=== PATIENT | male | born 1950 | race Caucasian/White ===

== ENCOUNTER 2021-12-27 16:09 | Emergency (ER) | payer MEDICARE ==
[2021-12-28] MEDS ORDERED: SODIUM CHLORIDE 0.9% 1000 ML 1,000 ML IV ONE (02:12)
--- NOTE | 2021-12-28 02:49 | Emergency Department Report ---
ED Dizziness HPI - General Chief Complaint: Dizziness Stated Complaint: DIZZINESS Time Seen by Provider: 12/28/21 02:06 Source: patient Mode of arrival: Ambulatory Limitations: No Limitations - History of Present Illness Initial Comments: Patient is a 71-year-old male presenting with complaint of dizziness and lightheadedness for the past 2 days. States when he walks he feels as if he could possibly pass out. He denies any chest pain, palpitations or headaches. - Related Data Previous Rx's Medication Instructions Recorded Last Taken Type QUEtiapine [SEROquel] 400 mg PO HS #60 tablet 04/30/19 Unknown Rx Sertraline [Zoloft] 50 mg PO QDAY #30 tablet 04/30/19 Unknown Rx Thiamine [Vitamin B-1] 100 mg PO QDAY #30 tablet 04/30/19 Unknown Rx chlordiazePOXIDE [Librium] 5 mg PO HS #7 capsule 04/30/19 Unknown Rx Meclizine [Antivert] 12.5 mg PO BID PRN #10 12/28/21 Unknown Rx Allergies Allergy/AdvReac Type Severity Reaction Status Date / Time haloperidol [From Haldol] Allergy Unknown Unverified 04/22/19 09:05 ED Review of Systems ROS: Stated complaint: DIZZINESS Other details as noted in HPI Constitutional: denies: chills, fever Respiratory: denies: cough, shortness of breath, wheezing Cardiovascular: denies: chest pain, palpitations Gastrointestinal: denies: abdominal pain, nausea, diarrhea Genitourinary: denies: urgency, dysuria Neurological: vertigo Psychiatric: denies: anxiety, depression ED Past Medical Hx - Past Medical History Hx Congestive Heart Failure: No Hx Diabetes: No Hx Renal Disease: No Hx Arthritis: No Hx Seizures: Yes Hx Asthma: No Hx COPD: Yes - Medications Home Medications: Home Medications Medication Instructions Recorded Confirmed Last Taken Type QUEtiapine [SEROquel] 400 mg PO HS #60 tablet 04/30/19 Unknown Rx Sertraline [Zoloft] 50 mg PO QDAY #30 tablet 04/30/19 Unknown Rx Thiamine [Vitamin B-1] 100 mg PO QDAY #30 tablet 04/30/19 Unknown Rx chlordiazePOXIDE [Librium] 5 mg PO HS #7 capsule 04/30/19 Unknown Rx Meclizine [Antivert] 12.5 mg PO BID PRN #10 12/28/21 Unknown Rx ED Physical Exam - General Limitations: No Limitations General appearance: alert, in no apparent distress - Head Head exam: Present: atraumatic, normocephalic - Respiratory Respiratory exam: Present: normal lung sounds bilaterally. Absent: respiratory distress - Cardiovascular Cardiovascular Exam: Present: regular rate, normal rhythm. Absent: systolic murmur, diastolic murmur, rubs, gallop - GI/Abdominal GI/Abdominal exam: Present: soft, normal bowel sounds. Absent: tenderness - Neurological Exam Neurological exam: Present: alert, oriented X3, CN II-XII intact - Psychiatric Psychiatric exam: Present: normal affect, normal mood - Skin Skin exam: Present: warm, dry, intact, normal color ED Course Vital Signs 12/27/21 18:14 Temperature 98.7 F Pulse Rate 74 Respiratory 18 Rate Blood Pressure 118/64 [Right] O2 Sat by Pulse 99 Oximetry ED Medical Decision Making - Lab Data Result diagrams: 12/28/21 02:22 12/28/21 02:22 - EKG Data EKG shows normal: sinus rhythm, axis, intervals, QRS complexes, ST-T waves - Medical Decision Making CT head shows no acute intracranial abnormality. Hypoattenuation noted in association with remote infarct. Labs are grossly unremarkable. Patient given 1 L normal saline bolus. EKG is normal. Likely benign positional vertigo. Will discharge home on meclizine. Follow-up with PCP as needed. Critical care attestation.: If time is entered above; I have spent that time in minutes in the direct care o f this critically ill patient, excluding procedure time. ED Disposition Clinical Impression: Nonspecific dizziness Disposition: 01 HOME / SELF CARE / HOMELESS Is pt being admited?: No Condition: Stable Instructions: Vertigo, [id number] Referrals: ELAINE DUDLEY MD [Primary Care Provider] - 3-5 Days Time of Disposition: 04:12
[2021-12-28 02:58] LABS: Basophils # (Auto) 0.1 K/mm3 (0.0-0.1); Basophils % (Auto) 1.2 % (0.0-1.8); Eosinophils # (Auto) 0.2 K/mm3 (0.0-0.4); Eosinophils % (Auto) 3.8 % (0.0-4.3); Hematocrit 41.6 % (35.5-45.6); Hemoglobin 14.1 gm/dl (11.8-15.2); Lymphocytes # (Auto) 1.6 K/mm3 (1.2-5.4); Lymphocytes % (Auto) 27.3 % (13.4-35.0); Mean Corpuscular HGB Conc 34 % (32-34); Mean Corpuscular Volume 98 fl (84-94); Monocytes # (Auto) 0.4 K/mm3 (0.0-0.8); Monocytes % (Auto) 7.3 % (0.0-7.3); Platelet Count 147 K/mm3 (140-440); Red Blood Count 4.25 M/mm3 (3.65-5.03); Red Cell Distribution Width 13.2 % (13.2-15.2)
[2021-12-28 03:14] LABS: Alanine Aminotransferase 16 units/L (7-56); Albumin 3.9 g/dL (3.9-5); BUN/Creatinine Ratio 16; Blood Urea Nitrogen 16 mg/dL (9-20); Calcium 8.4 mg/dL (8.4-10.2); Hemolysis Index 12
--- NOTE | 2021-12-28 03:46 | Cat Scan Report ---
CT HEAD WITHOUT CONTRAST INDICATION / CLINICAL INFORMATION: Lightheadedness / Dizziness. TECHNIQUE: CT head was performed without administration of intravenous contrast. All CT scans at this location are performed using CT dose reduction for ALARA by means of automated exposure control. COMPARISON: None available. FINDINGS: CEREBRAL HEMISPHERES: Hypoattenuation of subcortical white matter within the right pre and postcentra l gyrus compatible with prior infarction with additional encephalomalacia involving slightly more cau kayli right precentral gyrus. Age appropriate atrophy demonstrated. No midline shift. Basal cisterns pa tent. HEMORRHAGE: None. CEREBELLUM / BRAINSTEM: No significant abnormality. ORBITS: No significant abnormality. SOFT TISSUES: No significant abnormality. SKULL: No significant abnormality. PARANASAL SINUSES / MASTOID AIR CELLS: Mucous retention cyst left maxillary sinus minimal mucoperiost eal thickening of the right maxillary sinus. ADDITIONAL FINDINGS: None. IMPRESSION: 1. Hypoattenuation as detailed compatible with prior infarction. No acute intracranial pathology. Signer Name: Guru Kunz II, MD Signed: 12/28/2021 3:42 AM Workstation Name: [id number]
[2021-12-28 05:22] VITALS: BP 126/70
--- NOTE | 2021-12-28 10:26 | Electrocardiograph Report ---
[facility] Test Date: 2021-12-27 Test Time: 18:27:01 Pat Name: EBER MULTANI Department: Room: Gender: M Underlay Stitcher: RADHA : 1950 Requested By: SUDARSHAN KAUR Order Number: [id number] Reading MD: Paco Mina Measurements Intervals [place] Rate: 74 P: 58 NM: 155 QRS: 54 QRSD: 98 T: 65 QT: 399 QTc: 436 Interpretive Statements Sinus rhythm Atrial premature complex No previous ECG available for comparison Electronically Signed On 12-28-2021 10:25:49 EDT by Paco Mina
== END 2021-12-28 05:22 | disposition home or self-care (01) ==
LOC: ED 16:09
DX: R42 Dizziness and giddiness (principal); Z88.8 Allergy status to other drugs, medicaments and biological substances
CPT/HCPCS: 36415; 70450; 80053; 84484; 85025; 93005; 96360; 99284; J7030

== ENCOUNTER 2022-05-09 11:59 | Emergency (ER) | payer MEDICARE ==
[2022-05-09 12:18] VITALS: BP 155/77
[2022-05-09] MEDS ORDERED: LORazepam 1 MG TAB PO ONE (15:19)
--- NOTE | 2022-05-09 15:23 | Emergency Department Report ---
ED General Adult HPI - General Chief complaint: Medical Clearance Stated complaint: OUT OF MEDICATIONS/FOR MH Time Seen by Provider: 05/09/22 15:07 Source: patient, EMS Mode of arrival: Ambulatory Limitations: No Limitations - History of Present Illness Initial comments: Patient is a 71-year-old male with history of PTSD and major depressive disorder on Seroquel presenting to ED with complaint of being out of his medications for the past 3 weeks. States he also takes Plavix and metoprolol. Also states he is having symptoms of alcohol withdrawal. Severity scale (0 -10): 0 - Related Data Previous Rx's Medication Instructions Recorded Last Taken Type QUEtiapine [SEROquel] 400 mg PO HS #60 tablet 04/30/19 Unknown Rx Sertraline [Zoloft] 50 mg PO QDAY #30 tablet 04/30/19 Unknown Rx Thiamine [Vitamin B-1] 100 mg PO QDAY #30 tablet 04/30/19 Unknown Rx chlordiazePOXIDE [Librium] 5 mg PO HS #7 capsule 04/30/19 Unknown Rx Meclizine [Antivert] 12.5 mg PO BID PRN #10 12/28/21 Unknown Rx Quetiapine Fumarate [SEROquel] 400 mg PO QHS #30 05/09/22 Unknown Rx Allergies Allergy/AdvReac Type Severity Reaction Status Date / Time haloperidol [From Haldol] Allergy Unknown Unverified 05/09/22 12:18 ED Review of Systems ROS: Stated complaint: OUT OF MEDICATIONS/FOR MH Other details as noted in HPI Constitutional: denies: chills, fever Respiratory: denies: cough, shortness of breath, wheezing Cardiovascular: denies: chest pain, palpitations Genitourinary: denies: urgency, dysuria Musculoskeletal: denies: back pain, joint swelling, arthralgia Skin: denies: rash, lesions Neurological: denies: headache, weakness, paresthesias Psychiatric: denies: anxiety, depression ED Past Medical Hx - Past Medical History Hx Congestive Heart Failure: No Hx Diabetes: No Hx Renal Disease: No Hx Arthritis: No Hx Seizures: Yes Hx Asthma: No Hx COPD: Yes - Medications Home Medications: Home Medications Medication Instructions Recorded Confirmed Last Taken Type QUEtiapine [SEROquel] 400 mg PO HS #60 tablet 04/30/19 Unknown Rx Sertraline [Zoloft] 50 mg PO QDAY #30 tablet 04/30/19 Unknown Rx Thiamine [Vitamin B-1] 100 mg PO QDAY #30 tablet 04/30/19 Unknown Rx chlordiazePOXIDE [Librium] 5 mg PO HS #7 capsule 04/30/19 Unknown Rx Meclizine [Antivert] 12.5 mg PO BID PRN #10 12/28/21 Unknown Rx Quetiapine Fumarate [SEROquel] 400 mg PO QHS #30 05/09/22 Unknown Rx ED Physical Exam - General Limitations: No Limitations General appearance: alert, in no apparent distress - Head Head exam: Present: atraumatic, normocephalic - Respiratory Respiratory exam: Present: normal lung sounds bilaterally. Absent: respiratory distress - Cardiovascular Cardiovascular Exam: Present: regular rate, normal rhythm, normal heart sounds - GI/Abdominal GI/Abdominal exam: Present: soft. Absent: distended, tenderness - Rectal Rectal exam: Present: deferred - Neurological Exam Neurological exam: Present: alert, oriented X3, CN II-XII intact - Psychiatric Psychiatric exam: Present: normal affect, normal mood - Skin Skin exam: Present: warm, dry, intact, normal color ED Course Vital Signs 05/09/22 12:00 Temperature 98.3 F Pulse Rate 113 H Respiratory 16 Rate Blood Pressure 155/77 [Left] O2 Sat by Pulse 98 Oximetry ED Medical Decision Making - Medical Decision Making Blood pressure 155/77. No documented history of hypertension. No antihypertensive medications or Plavix noted on OCT however Seroquel is noted. Patient given oral Ativan and oral Seroquel. Will discharge home with Rx for Seroquel. Patient instructed to follow-up with PCP as soon as possible to refill his other medications. Critical care attestation.: If time is entered above; I have spent that time in minutes in the direct care of this critically ill patient, excluding procedure time. ED Disposition Clinical Impression: Medication refill Disposition: 01 HOME / SELF CARE / HOMELESS Is pt being admited?: No Condition: Stable Prescriptions: Quetiapine Fumarate [SEROquel] 400 mg PO QHS #30 Time of Disposition: 20:02
[2022-05-09] MEDS ORDERED: QUEtiapine 100 MG TAB PO ONE (19:57)
[2022-05-09] MEDS ORDERED: ASPIRIN 81 MG TAB CHEW PO ONE (20:04)
[2022-05-09] MEDS ORDERED: hydroCHLOROthiazide 25 MG TAB PO ONE (20:05)
== END 2022-05-09 20:29 | disposition home or self-care (01) ==
LOC: ED 11:59
DX: F32.A Depression, unspecified (principal); Z76.0 Encounter for issue of repeat prescription; R56.9 Unspecified convulsions
CPT/HCPCS: 99283